=== PATIENT | male | born 1955 | race Caucasian/White ===

== ENCOUNTER 2018-03-28 10:19 | Day surgery (SDC) | payer OTHER ==
[2018-03-28] MEDS ORDERED: LIDOCAINE 1% 2 ML INJ ID PRN (10:30)
[2018-03-28] MEDS ORDERED: LR 1,000 ML IV ONE (10:30)
--- NOTE | 2018-03-28 12:02 | PDANEPAE ---
ANE Past Medical History - Cardiovascular History Hx Hypertension: Yes Hx Arrhythmias: No Hx Chest Pain: No Hx Coronary Artery / Peripheral Vascular Disease: No Hx CHF / Valvular Disease: No Hx Palpitations: No - Pulmonary History Hx COPD: No Hx Asthma/Reactive Airway Disease: No Hx Recent Upper Respiratory Infection: No Hx Oxygen in Use at Home: Yes O2 in Use at Home (L/minute): 1.l Hx Sleep Apnea: Yes Sleep Apnea Screening Result - Last Documented: Positive Pulmonary History Comment: NETO with CPAP - Neurologic History Hx Cerebrovascular Accident: No Hx Seizures: No Hx Dementia: No - Endocrine History Hx Diabetes: Yes Hypothyroid: No Hyperthyroid: No Obesity: severe Endocrine History Comment: type11 - Renal History Hx Renal Disorders: No - Liver History Hx Hepatic Disorders: No - Neurological & Psychiatric Hx Hx Neurological and Psychiatric Disorders: No - Cancer History Hx Cancer: No - Congenital Disorder History Hx Congenital Disorders: No - GI History Hx Gastrointestinal Disorders: No - Other Health History Other Health History: dentures upper - Chronic Pain History Chronic Pain: Yes (left shou;lder) - Surgical History Prior Surgeries: none ANE Review of Systems Review of Systems: - Exercise capacity METS (RN): 4 METS ANE Patient History - Allergies Allergies/Adverse Reactions: No Known Allergies Allergy (Verified 03/14/18 12:04) - Home Medications Home Medications: Levothyroxine Sodium [Synthroid] 06/09/11 [Last Taken 03/28/18] Actos 03/14/18 [Last Taken 03/24/18] Aspirin EC 81 mg (*) 03/14/18 [Last Taken 03/23/18] Glucophage XR 500 mg (*) 03/14/18 [Last Taken 03/24/18] Lisinopril 03/14/18 [Last Taken 03/28/18] Magnesium 03/14/18 [Last Taken 03/23/18] Vitamin B-1 03/14/18 [Last Taken 03/23/18] - NPO status NPO Since - Liquids (Date): 03/28/18 NPO Since - Liquids (Time): 00:00 NPO Since - Solids (Date): 03/26/18 NPO Since - Solids (Time): 09:00 - Smoking Hx Smoking Status: Never smoked - Family Anes Hx Family Hx Anesthesia Complications: none ANE Labs/Vital Signs - Labs Result Diagrams: 03/14/18 14:25 - Vital Signs Blood Pressure: 138/82 Heart Rate: 99 Respiratory Rate: 16 Height: 177.8 cm Weight: 149.685 kg ANE Physical Exam - Airway Neck exam: decreased ROM Mallampati Score: Class 3 Mouth exam: normal dental/mouth exam - Pulmonary Pulmonary: no respiratory distress - Cardiovascular Cardiovascular: regular rate and rhythym - ASA Status ASA Status: III ANE Anesthesia Plan Anesthesia Plan: general endotracheal anesthesia, GA with mask
--- NOTE | 2018-03-28 12:30 | PDGENHP ---
History & Physical Chief Complaint: screening History of Present Illness: hx polyps Pertinent Past, Social, Family History: no fhx cc or polyps. no tobacco. alcohol rarely. sleepapnea, oxygemn at night, DMII hypothroidism bph Relevant Physical Exam: a+ox3. cta. s1s2. rrr. +BS, soft nt Cardiorespiratory Assessment: class 3
[2018-03-28] MEDS ORDERED: PROPOFOL/EMULSION 500 MG/50 ML BOTTLE IV ONE (12:42)
[2018-03-28] MEDS ORDERED: LIDOCAINE 2% 5 ML SDV ONE (13:10)
--- NOTE | 2018-03-28 13:31 | GIREPORT ---
[facility] Surgical Services - Endoscopy Department Patient Name: Denilson Stock Procedure Date: 03/28/2018 11:45 AM Patient Type: Outpatient Attending MD/ ER Physician: Ann Yu Procedure: Colonoscopy Indications: High risk colon cancer surveillance: Personal history of non-advanced adenoma, High risk colon cancer surveillance: Personal history of adeno ma less than 10 mm in size Providers: John Leonard MD Referring MD: Brock Linda MD Medicines: Total IV Anesthesia (TIVA) + IV general w/o airway Complications: No immediate complications. Estimated blood loss: Minimal. Description of Procedure: After obtaining informed consent, the scope was passed under direct vis ion. Throughout the procedure, the patient's blood pressure, pulse, and oxyg en saturations were monitored continuously. The Colonoscope with irrigatio n channel was introduced through the anus and advanced to the cecum, identified by the appendiceal orifice, ileocecal valve and palpation. T he colonoscopy was performed without difficulty. The patient tolerated the procedure well. The quality of the bowel preparation was good. Findings: The digital rectal exam was normal. I cannot feel his prostate in this position, and I don't feel a fissure but I suspect that is causing his rectal pain. A 4 mm polyp was found in the transverse colon. The polyp was semi-sess ile. The polyp was removed with a piecemeal technique using a cold biopsy forceps. Resection and retrieval were complete. Estimated blood loss wa s minimal. Many medium-mouthed diverticula were found in the sigmoid colon and descending colon. The exam was otherwise without abnormality. Estimated Blood Loss: Estimated blood loss was minimal. Post Op Diagnosis: - One 4 mm polyp in the transverse colon, removed piecemeal using a col d biopsy forceps. Resected and retrieved. - Diverticulosis in the sigmoid colon and in the descending colon. - The examination was otherwise normal. Recommendation: - Await pathology results. - My office will call with the pathology result with 5-7 days. If you h ave not heard from my office by 12-14, do not assume the pathology is [place], please call [phone] to get the pathology results. - Repeat colonoscopy in 5 years for surveillance. - High fiber diet indefinitely. - 30-35 grams of dietary fiber per day. Can use supplemental fiber. - A high fiber diet may decrease risk of complications from diverticulo sis. There is no need to avoid seeds or nuts. - Patient has a contact number available for emergencies. The signs and symptoms of potential delayed complications were discussed with the pat ient. Return to normal activities tomorrow. Written discharge instructions we re provided to the patient. - Continue present medications. - If rectal symptoms persist, then first try hydrocortisone suppository and if not effective consider treatment with diltiazeim/lidocaine ointment or similar anal fissure treatement. - Discharge patient to home (ambulatory). - Return to primary care physician as previously scheduled. - Thank you for allowing me to help in your patient's care. Do not hesi neumann to call with any questions. Attending Participation: I personally performed the entire procedure. Asiha Lopez M.D John Leonard MD 03/28/2018 1:30:56 PM This report has been signed electronicallyMathew MD Aisha Number of Addenda: 0 Note Initiated On: 03/28/2018 11:45 AM Total Procedure Duration Time 0 hours 16 minutes 44 seconds [email or web address]
[2018-03-28 14:23] VITALS: BP 135/91
== END 2018-03-28 14:20 | disposition home or self-care (01) ==
LOC: FPAT 10:19
PROVIDERS: ATTEND Internal Medicine Gastroenterology
PROC: 0DBL8ZZ Excision of Transverse Colon, Via Natural or Artificial Opening Endoscopic (ICD-10-PCS; principal; 2018-03-28 12:00)
DX: K63.5 Polyp of colon (principal); K57.30 Diverticulosis of large intestine without perforation or abscess without bleeding; E03.9 Hypothyroidism, unspecified; E11.9 Type 2 diabetes mellitus without complications; G47.33 Obstructive sleep apnea (adult) (pediatric); G89.29 Other chronic pain
CPT/HCPCS: J2704

== ENCOUNTER 2018-12-21 09:04 | Emergency (ER) | payer OTHER ==
[2018-12-21 09:16] VITALS: BP 140/83
--- NOTE | 2018-12-21 09:45 | EDPHY ---
H & P Stated Complaint: blood in urine Time Seen by Provider: 12/21/18 09:18 HPI/ROS: CHIEF COMPLAINT: Hematuria HISTORY OF PRESENT ILLNESS: 63-year-old male with hypertension and diabetes presents hematuria. Onset of dysuria and urinary frequency/urgency yesterday afternoon. Associated with pink-tinged urine yesterday evening. No fever, vomiting, abdominal pain or flank pain. No prior history of urinary tract infection or kidney stone. REVIEW OF SYSTEMS: complete 10 point ROS reviewed and is negative except for the noted elements in the HPI - Personal History Current Tetanus/Diphtheria Vaccine: Unsure Current Tetanus Diphtheria and Acellular Pertussis (TDAP): Unsure - Medical/Surgical History Hx Diabetes: Yes - Social History Smoking Status: Never smoked Alcohol Use: Sober Drug Use: None - Physical Exam Exam: General Appearance: Alert, pleasant, well-appearing Eyes: Pupils equal and round, no conjunctival pallor ENT, Mouth: Mucous membranes moist Neck: Normal inspection Respiratory: Lungs are clear to auscultation Cardiovascular: Regular rate and rhythm Gastrointestinal: Abdomen is soft, obese and nontender Neurological: A&O, nonfocal exam Skin: Warm and dry Extremities: Normal inspection Psychiatric: Mood and affect normal Constitutional: Initial Vital Signs Temperature (C) 37.4 C 12/21/18 09:13 Heart Rate 111 H 12/21/18 09:13 Respiratory Rate 20 12/21/18 09:13 Blood Pressure 140/83 H 12/21/18 09:13 O2 Sat (%) 92 12/21/18 09:13 O2 Delivery Mode Room Air Allergies/Adverse Reactions: No Known Allergies Allergy (Verified 03/14/18 12:04) Home Medications: Medication Instructions Recorded Levothyroxine Sodium [Synthroid] 06/09/11 Actos 03/14/18 Aspirin EC 81 mg (*) 03/14/18 Glucophage XR 500 mg (*) 03/14/18 Lisinopril 03/14/18 Magnesium 03/14/18 Vitamin B-1 03/14/18 Ciprofloxacin [Cipro] 500 mg PO BID #20 tab 12/21/18 Phenazopyridine HCl [Pyridium] 200 mg PO TID #6 tab 12/21/18 Medical Decision Making ED Course/Re-evaluation: This pt presents with urinary sx. UA c/w UTI. Urine cx sent. No evidence of pyelo or kidney stone. Cipro 500mg orally given. Warning signs discussed. - Data Points Laboratory Results: 12/21/18 09:40 Urine Color YELLOW Urine Appearance HAZY Urine pH 6.0 (5.0-7.5) Ur Specific [place] 1.017 (1.002-1.030) Urine Protein 2+ H (NEGATIVE) Urine Ketones NEGATIVE (NEGATIVE) Urine Blood 3+ H (NEGATIVE) Urine Nitrate NEGATIVE (NEGATIVE) Urine Bilirubin NEGATIVE (NEGATIVE) Urine Urobilinogen NEGATIVE EU EU (0.2-1.0) Ur Leukocyte Esterase 1+ H (NEGATIVE) Urine RBC 50-182 /hpf H /hpf (0-3) Urine WBC 50-182 /hpf H /hpf (0-3) Ur Epithelial Cells TRACE /lpf /lpf (NONE-1+) Urine Mucus TRACE /lpf /lpf (NONE-1+) Urine Glucose NEGATIVE (NEGATIVE) Medications Given: Discontinued Medications Acetaminophen (Tylenol) 650 mg PO EDNOW ONE Stop: 12/21/18 10:16 Last Admin: 12/21/18 10:18 Dose: 650 mg Ciprofloxacin (Cipro) 500 mg PO EDNOW ONE PRN Reason: Protocol Stop: 12/21/18 10:11 Last Admin: 12/21/18 10:16 Dose: 500 mg Departure - Departure Disposition: Home, Routine, Self-Care Clinical Impression: Urinary tract infection Qualifiers: Urinary tract infection type: acute cystitis Hematuria presence: with hematuria Qualified Code(s): N30.01 - Acute cystitis with hematuria Condition: Good Instructions: Urinary Tract Infection in Men (ED) Additional Instructions: Take antibiotics as prescribed. Tylenol 650 mg every 4 hr as needed for pain. Pyridium 200 mg 3 times daily as needed for urinary burning. Return for worsening symptoms or any concerns. Referrals: Brandon Young MD [Primary Care Provider] - As per Instructions Prescriptions: Ciprofloxacin [Cipro] 500 mg PO BID #20 tab Phenazopyridine HCl [Pyridium] 200 mg PO TID #6 tab
[2018-12-21] MEDS ORDERED: CIPROFLOXACIN 500 MG TAB PO ONE (10:10)
[2018-12-21] MEDS ORDERED: ACETAMINOPHEN 325 MG TAB PO ONE (10:15)
== END 2018-12-21 10:21 | disposition home or self-care (01) ==
DX: N30.01 Acute cystitis with hematuria (principal)